=== PATIENT | female | born 1980 | race Caucasian/White ===

== ENCOUNTER 2017-01-18 17:58 | Inpatient (IN) | payer OTHER ==
[2017-01-18] VITALS (15 sets, daily range): BP systolic 136–206; BP diastolic 71–109; PULSE 64–76; RESP 15–18; O2SAT 98–100
[~2017-01-18] VITALS: Ht 170.2 cm; Wt 104.1 kg
[2017-01-18] MEDS: Labetalol 5 mg/mL 20 mL Inj IVPUSH ONE ×2 (18:20→19:45)
[2017-01-18] MEDS ORDERED: 0.9% Sodium Chloride 1,000 ML IV ONE (18:20)
[2017-01-18] MEDS ORDERED: Magnesium Sulf 4 Gm/100 mL H2O 4 GM in IV Premix 1 EACH IV ONE ×2 (18:20→20:40)
--- NOTE | 2017-01-18 18:20 | ED.REPORT ---
HPI-General Illness Date of Service Jan 18, 2017 ED Provider: Harvey Hester MD Pt is a 36 year old female with a hx of hypertension and gestational diabetes who is 2 days post- presenting to the ED complaining of high blood pressure (196/124) and bilateral LE swelling. The patient denies nausea, vomiting, SOB, abdominal pain or increasing vaginal bleeding. She had pre- eclampsia and was on a mag-drip during labor. She was induced on the 2nd and had the baby on the 4th at 38 weeks. Pt was discharged from [facility] this morning and had reportedly been off the magnesium drip for 24 hours at time of discharge. Pt is taking 100 mg labetalol daily. Nursing Notes Stated Complaint: HIGH BLOOD PRESSURE/HAD BABY 2 DAYS AGO Chief Complaint: General Complaint Nursing Notes Reviewed: Yes Allergies: Coded Allergies: No Known Allergies (Unverified , 01/18/17) Scheduled Labetalol (Labetalol) 100 Mg Tablet 100 MG PO DAILY General Time Seen by MD: 18:18 Chief Complaint Other (High blood pressure) Hx Obtained From: Patient Arrived By: Walk-in Sudden in Onset?: Yes Onset Occurred: Just prior to arrival Symptom Duration: Since onset Severity: Current: No pain currently Severity: Maximum: No pain Recent Healthcare: Recent doctor visit, Recent hospitalization Similar Sx Previous: Yes Past Medical History Past Medical History 2 days ago after vaginal delivery Had pre-eclampsia and gestational diabetes Past Surgical History denies Smoking History Unknown if Ever Smoker Ambulatory Status Independent Review of Systems High blood pressure Full Review of Systems Constitutional: Reports: Fatigue, Fever Respiratory: Denies: Shortness of breath, Wheezing GI: Denies: Nausea, Vomiting Female: Reports: Urinary frequency Musculoskeletal: Reports: Extremity swelling Complete sys rev & neg: except as marked. Physical Exam Vital Signs Vital Signs Date Time Temp Pulse Resp B/P Pulse Ox O2 Delivery O2 Flow Rate FiO2 01/18/17 18:09 37.1 74 18 206/109 100 Room Air Initial VS: Reviewed General/Constitutional: Well-developed, Well-nourished Head / Eyes: Atraumatic, Normocephalic, PERRL ENT: Mucous membranes moist, Conjunctiva normal, No scleral icterus Respiratory: Breath sounds normal, Clear to auscultation, No respiratory distress Cardiovascular: Regular rate & rhythm, Heart sounds normal, Intact distal pulses Psychiatric: Mood/affect normal, Behavior normal, Normal thought content Abdomen: Atraumatic, Soft, Non-tender Abd consistent with post Lower Extremity / Pelvis / MS: Atraumatic, No deformity, Neurologic intact, Vascular intact Bilateral 2+ LE pitting edema up to the knees. Good distal pulses. Skin: Atraumatic, Color NL, No rash, Warm, Dry, Intact Neurologic: Oriented X3, Speech NL, No motor deficits, No sensory deficits, CN II - XII intact, Reflexes equal bilat, Cerebellar NL, Memory NL Not hyporeflexive. No seizure activity. Interpretation & Diagnostics Lab Results Interpretation Result Diagram: 01/18/17 1835 01/18/17 1835 Test 01/18/17 18:35 White Blood Count 10.7th/mm3 (3.8-10.1) Red Blood Count 3.98mil/mm3 (3.90-5.20) Hemoglobin 11.2g/dL (12.0-15.6) Hematocrit 33.4% (35.0-46.0) Mean Corpuscular Volume 83.9fL (81-100) Mean Corpuscular Hemoglobin 28.1pg (27.0-35.0) Mean Corpuscular Hemoglobin Concent 33.5% (32.0-37.0) Red Cell Distribution Width 14.8% (12.3-15.4) Platelet Count 260bil/L (150-400) Neutrophils (%) (Auto) 61.8% (40-74) Lymphocytes (%) (Auto) 26.1% (14-46) Monocytes (%) (Auto) 8.4% (4-12) Eosinophils (%) (Auto) 3.2% (0-5) Basophils (%) (Auto) 0.2% (0-3) Prothrombin Time 8.8sec (8.1-12.5) Prothromb Time International Ratio 0.83ratio Sodium Level 137mEq/L (134-144) Potassium Level 4.1mEq/L (3.5-5.2) Chloride Level 101mEq/L (97-108) Carbon Dioxide Level 20mmol/L (18-29) Blood Urea Nitrogen 10mg/dL (6-20) Creatinine 0.56mg/dL (0.57-1.00) Estimat Glomerular Filtration Rate 176mL/min (>59) Glucose Level 123mg/dL (60-99) Lactic Acid Level 2.1mmol/L (0.4-2.0) Uric Acid 4.2mg/dL (2.6-7.2) Calcium Level 9.1mg/dL (8.5-10.1) Magnesium Level 1.5mg/dL (1.6-2.6) Total Bilirubin 0.2mg/dL (0.0-1.2) Aspartate Amino Transf (AST/SGOT) 66U/L (0-50) Alanine Aminotransferase (ALT/SGPT) 38U/L (0-32) Alkaline Phosphatase 107U/L (25-150) Total Protein 6.0g/dL (6.4-8.4) Albumin 3.1g/dL (3.4-5.0) ECG Interpretation ECG Interpretation: Normal axis and intervals. No ST segment changes. No acute T wave abnormalities. No other EKG for comparison. Time: 18:42 Interpreted by: ED physician Normal ECG Interpretation: Normal rate (74), Normal sinus rhythm Re-Eval/Medical Decision Med Decision/Clinical Course Pt is a 36 year old female with a hx of hypertension and gestational diabetes who is 2 days post- presenting to the ED complaining of high blood pressure (196/124) and bilateral LE swelling. The patient denies nausea, vomiting, SOB, abdominal pain or increasing vaginal bleeding. She had pre- eclampsia and was on a mag-drip during labor. She was induced on the 2nd and had the baby on the 4th at 38 weeks. Pt was discharged from [facility] this morning and had reportedly been off the magnesium drip for 24 hours at time of discharge. Pt is taking 100 mg labetalol daily. Upon arrival to the emergency Department the patient is quite hypertensive in the 200s over the 100s though improving to the 160s systolic at rest. Examination reveals significant pitting edema of the bilateral lower extremities and overall presentation is consistent with preeclampsia. Laboratory studies notable as below: CBC shows leukocytosis at 10.7 hematocrit of 33.4. CMP notable for magnesium of 1.5, mildly elevated transaminases Lactic acid of 2.1 No significant electrolyte abnormalities. Urine negative for protein, no signs of UTI. Coags normal. Overall presentation consistent with preeclampsia. Patient was initially treated with 20 mg of IV labetalol with good effect. I was in the process of initiating magnesium when [facility] arrived at the bedside. They have requested that we hold off on magnesium for the moment as the patient is responding well to IV labetalol. At this time patient's transaminases are mildly elevated without evidence of fulminant HELLP syndrome. The patient demonstrated no seizure-like activity. She is otherwise stable. Patient has been accepted by the [facility] service for further management and was transferred in stable condition. Time of Eval: 18:43 Patient Status: Condition improved Re-Evaluation/Progress Note: Discussed plan for admission. Pt understands and agrees with plan. Consultation #1: Referral / Consult Name: Lindy Javier MD Call Returned at: 18:33 Note: OBGYN. Accepts the admission. Consultation #2: Call Returned at: 18:45 Note: Spoke with Sofie, the pt's nurse at [facility]. Confirmed that the pt was treated with IV mag during labor. It stopped 24 hours prior to discharge, and pt was discharged on 100 mg of Labetalol. Counseled Regarding: Diagnosis, Lab results, Need for admission Discharge & Departure Primary Impression: Pre-eclampsia Trimester: unspecified trimester Qualified Code: O14.90 - Unspecified pre- eclampsia, unspecified trimester Additional Impressions: Hypertension Hypertension type: unspecified secondary hypertension Qualified Code: I15.9 - Secondary hypertension, unspecified Lower extremity edema Laterality: bilateral Qualified Code: R60.0 - Localized edema Elevated transaminase level Disposition: ADMITTED TO HOSPITAL Discharge Condition All VS Reviewed: Yes Condition: Improved Crit Care Except Billable Proc Time Spent: 75-104 minutes Services Performed: Patient management by me, Time spent at bedside, Reviewing test results, Discussing patient care, Documentation in record, Time with fam/ surrogate Critical Care Notes: Discussion with outside facility, discussion with [facility], management of hypertension/preeclampsia Scrchristina Attestation Portions of this note were transcribed by Litzy Sloan. I, Dr. Hester personally performed the history, physical exam and medical decision-making; I reviewed and confirmed the accuracy of the information in the transcribed note. Signed by: Adolfo Karimi, 01/18/2017. Harvey Hester MD Jan 18, 2017 18:20 LITZY SLOAN Jan 18, 2017 18:32
[2017-01-18 18:50] LABS: BASOPHILS % (AUTO) 0.2 % (0-3); EOSINOPHILS % (AUTO) 3.2 % (0-5); MONOCYTES % (AUTO) 8.4 % (4-12); Mean Corpuscular Hemoglobin 28.1 pg (27.0-35.0); Mean Corpuscular Volume 83.9 fL (81-100); NEUTROPHILS % (AUTO) 61.8 % (40-74); Platelet Count 260 bil/L (150-400)
[2017-01-18 19:03] LABS: INR 0.83 ratio
[2017-01-18 19:10] LABS: Magnesium 1.5 mg/dL (1.6-2.6)
[2017-01-18] MEDS ORDERED: LABE100T4 PO (19:42)
[2017-01-18 19:51] LABS: APPEARANCE,URINE HAZY (CLEAR,HAZY); COLOR,URINE YELLOW (YELLOW); OCCULT BLOOD,URINE LARGE (NEGATIVE); PH,URINE 6.5 (5.0-8.0); UROBILINOGEN,URINE NORMAL (NORMAL)
[2017-01-18] MEDS ORDERED: hydrALAZINE 20 mg/mL Inj IVPUSH PRN (20:40)
[2017-01-18] MEDS ORDERED: Calcium GLUCOnate 10% (Gm) 1 Gm/10 mL Inj IV PRN (20:40)
[2017-01-18] MEDS ORDERED: Labetalol 5 mg/mL 20 mL Inj IV PRN (20:40)
--- NOTE | 2017-01-18 21:20 | NUR ---
Admission BG fingerstick 86.
[2017-01-18] MEDS: Lactated Ringer's 1,000 ML IV SCH (21:45)
[2017-01-18] MEDS: Magnesium Sulf 20 Gm/500mL H2O 20 GM in IV Premix 1 EACH IV SCH (22:28)
--- NOTE | 2017-01-18 23:35 | HP ---
[address] [address] HISTORY AND PHYSICAL PATIENT: PREM NESS : 1980 MR#: [id number] ADMIT: 01/18/2017 JOB ID: [id number] HISTORY OF PRESENT ILLNESS: This is a 36-year-old female 1, para 1, status post vaginal delivery. This is day two after her vaginal delivery. History was based on patient and her labor and delivery nurse where she was delivered, which at this time no medical records could be faxed, but I personally talked with the nurse at their [facility]. She was admitted to [facility] in the hospital at 38 weeks for induction of labor, likely for chronic hypertension with superimposed preeclampsia. The patient has chronic hypertension for several years. She was on lisinopril and hydrochlorothiazide. It looks like the dosage was 20/12.5 mg. After she was she was on labetalol 200 b.i.d. According to patient her blood pressure has been all well controlled until weeks when she was admitted for induction. Even at that time patient said her blood pressure was not super high and she claimed she did not have headache, blurry vision, or epigastric pain, but she was admitted for induction and was placed on magnesium over her whole process of labor and magnesium was discontinued shortly during delivery and restarted. Based on the time according to the nurse and patient, it looks like her magnesium after was used between 12-20 hours, but I cannot get the exact time period. The delivery was not complicated and her preeclampsia labs were all in normal range according to labor and delivery nurse. Patient mentioned that her magnesium level was high and that is why the magnesium was stopped, but the labor and delivery nurse did not mention this. She was discharged this morning and at discharge her blood pressure was in 120s/60s. She was sent home with labetalol 200 b.i.d. When she went back home she did not feel headaches. She feels her legs swell and is concerning. She took her blood pressure, it was high at home. She came here at emergency department. She had no nausea, vomiting. No epigastric pain. No headache, no blurry vision, and no floaters before her eyes. She still has moderate to minimal lochia. She still has abdominal cramping on and off. She is currently doing breast-feeding. ALLERGIES: She declined a history of drug allergies. PAST MEDICAL HISTORY: Chronic hypertension and gestational diabetes. Declined other medical issues. Past surgical issues: She had nose surgery and wisdom teeth removal. GYNECOLOGIC HISTORY: Not complicated. OBSTETRICAL HISTORY: As mentioned above. SOCIAL HISTORY: Declined smoking, alcohol use or drugs, including marijuana. PHYSICAL EXAMINATION: Blood pressure at arriving to emergency department was 200/112, and rechecked 160s/100. Pulse in normal range, which was 74. Respiratory rate 18. O2 sat 98-100 on room air. Cardiac: RRR. No murmur. Pulmonary: Bilaterally clear. Abdomen: Soft. Extremities: Nontender. DTRs 2+. LABORATORIES: Her AST is 66, ALT 38. Compared to her yesterday's labs all in normal range. Otherwise, her creatinine 0.56, glucose 123, uric acid 4.2. H and H 11.2/33.4. Platelets 260. PT 8.8. INR 0.83. Urine protein negative. ASSESSMENT AND PLAN: A 36-year-old female 2, para 2, status post vaginal delivery, day two. She was diagnosed likely chronic hypertension with superimposed preeclampsia, status post magnesium not completed 24 hour course, with severely elevated blood pressure. No symptoms though. 1. Based on her possible diagnosis of severe preeclampsia and not completing 24 hour magnesium, and now started to have elevated AST, ALT, I will put her back on magnesium, consider about 12-24 hours at this time. 2. Will closely monitor blood pressure. At this time, I will increase her labetalol to 300 b.i.d. Discussed with patient about putting her back on her previous medication, lisinopril and hydrochlorothiazide. Patient is very concerned and crying because she really desires for breast-feeding. At this time, will just hold for her previous medication, just increase her labetalol. If it is not working we will have to consider change in medication. Will put patient on clear fluid at this time and will give her IV fluid 50 with magnesium per hour. 3. I will not place a Saini catheter now, but we will instruct patient to void regularly to monitor urine output. If urine output is not adequate, Saini catheter will be placed. Repeat labs ordered for tomorrow morning at five o'clock.
[2017-01-19] VITALS (14 sets, daily range): BP systolic 119–167; BP diastolic 59–92; PULSE 65–109; RESP 15–18; O2SAT 98–100
[2017-01-19] MEDS ORDERED: LANOlin HPA 7 Gm Ointment TOPICAL PRN (03:50)
[2017-01-19 07:13] LABS: BASOPHILS % (AUTO) 0.1 % (0-3); EOSINOPHILS % (AUTO) 5.3 % (0-5); MONOCYTES % (AUTO) 6.7 % (4-12); Mean Corpuscular Hemoglobin 27.6 pg (27.0-35.0); Mean Corpuscular Volume 84.1 fL (81-100); Platelet Count 278 bil/L (150-400)
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
--- NOTE | 2017-01-19 07:29 | PCM.PNOBPP ---
Subjective Date of Service Jan 19, 2017 Post : Spontaneous Vaginal Delivery Visit History This is a 36-year-old female 1, para 1, status post vaginal delivery. This is day three after her vaginal delivery. History was from patient no outpatient records available, her labor and delivery nurse where she was delivered discussed patient case over phone and gave pertinent history. Patient was admitted to [facility] in the hospital at 38 weeks for induction of labor 01/16/17, likely for chronic hypertension with superimposed preeclampsia. The patient has chronic hypertension for several years. She was on lisinopril and hydrochlorothiazide. It looks like the dosage was 20/12.5 mg. After she was she was on labetalol 200 b.i.d. According to patient her blood pressure has been all well controlled until weeks when she was admitted for induction. Even at that time patient said her blood pressure was not super high and she claimed she did not have headache, blurry vision, or epigastric pain, but she was admitted for induction and was placed on magnesium over her whole process of labor and magnesium was discontinued shortly during delivery and restarted. Based on the time according to the nurse and patient, it looks like her magnesium after was used between 12-20 hours, but I cannot get the exact time period. The delivery was not complicated and her preeclampsia labs were all in normal range according to labor and delivery nurse. Patient mentioned that her magnesium level was high and that is why the magnesium was stopped, but the labor and delivery nurse did not mention this. She was discharged 01/18/17 and at discharge her blood pressure was in 120s/60s. She was sent home with labetalol 200 b.i.d. When she went back home she did not feel headaches. At time of admission patient stated she feelt her legs swell and is concerning. She took her blood pressure, it was high at home. She came here at emergency department. She had no nausea, vomiting. No epigastric pain. No headache, no blurry vision, and no floaters before her eyes. She still has moderate to minimal lochia. She still has abdominal cramping on and off. She is currently doing breast-feeding. Subjective Today patient denies headaches,nausea, vomiting, extremity weakness, chest pain , shortness of breath. She states that she has mild blurry vision but stated she feels foggy with mag, Labs Her AST is 66, ALT 38. Compared to her yesterday's labs all in normal range. Otherwise, her creatinine 0.56, glucose 123, uric acid 4.2. H and H 11.2/33.4. Platelets 260. PT 8.8. INR 0.83. Urine protein negative. Labs Laboratory Tests 01/19/17 06:50: Exam Vital Signs Vital Signs Vital Signs Date Time Temp Pulse Resp B/P Pulse Ox O2 Delivery O2 Flow Rate FiO2 01/19/17 06:30 72 17 130/78 100 Room Air 01/19/17 05:44 36.4 71 15 132/59 98 Room Air 01/19/17 04:30 71 17 138/78 98 Room Air 01/19/17 03:35 36.1 70 18 137/73 98 Room Air 01/19/17 02:39 36.2 70 18 155/72 99 01/19/17 01:31 36.2 68 17 122/67 100 Room Air 01/19/17 00:29 68 146/85 01/19/17 00:19 77 124/79 01/18/17 23:58 70 136/71 01/18/17 23:30 36.2 70 18 160/85 Room Air Exam Abdomen: Fundus firm Lungs: Clear to Percussion, Normal Air Movement Heart: Regular Rate/Rhythm, Normal S1, Normal S2 General: Oriented X3, Cooperative, No Acute Distress OB Post Assessment/Plan Assessment A 36-year-old female 2, para 2, status post vaginal delivery, day three. She was diagnosed likely chronic hypertension with superimposed preeclampsia, status post magnesium not completed 24 hour course, with severely elevated blood pressure. No symptoms currently 1. Continue magnesium until 24 hours. Based on her possible diagnosis of severe preeclampsia, DC if develop clonus per protocil 2. Will closely monitor blood pressure. Consider, increase her labetalol to 300 b.i.d. 3. Diet clear fluid at this time 4. Monitor urine output. If urine output is not adequate, Saini catheter will be placed. 5. Repeat AM labs 6. Will add procardia XL 30mg daily. Attending Statement The patient was seen and examined together with Dr. Vitaliy Farnsworth 01/20/2017 and I have added additional information to the note above. VITALIY FARNSWORTH DO Jan 19, 2017 07:29 Farshad Guerrero MD Jan 20, 2017 10:23
[2017-01-19 07:33] LABS: Magnesium 4.6 mg/dL (1.6-2.6)
[2017-01-19] MEDS: Magnesium Sulf 20 Gm/500mL H2O 20 GM in IV Premix 1 EACH IV SCH (08:57)
--- NOTE | 2017-01-19 09:41 | NUR ---
BP elevated at 0730. Pt. states that she is exhausted, has not slept, and her "anxiety is very high." Pt. discussed move to [place] from [place] only a couple of days ago. Because of her BP, her has her baby. She is worried about issues, and she is "starving." Has not eaten since yesterday. Discussed need to get some sleep. T/C to Dr. Young. Ordered Xanax, one time dose, and orders for general diet received. Will administer Xanax when pt. wakes up.
[2017-01-19] MEDS ORDERED: ALPRAZolam 0.5 mg Tablet PO ONE ×2 (10:25→16:40)
--- NOTE | 2017-01-19 14:18 | NUR ---
Note 1245 To patient's room for visit. [place] being held by FOB. Assisted client with comfortable position and taught hand expression of colostrum. IBCLC able to express several drops after some massage. held by patient in cradle position and attempted to latch. [place] licked nipple but did not gape or latch. Due to appearance of jaundice and most recent feeding of formula at 0700, encouraged FOB to feed formula at that time. Assisted with pump positioning at breasts bilaterally and encouraged to pump q3 hrs at least. Also encouraged to not expect colostrum/breastmilk at initial pumpings. with transitional stools and FOB states has an appointment 11/19/2016 with [facility]. Encouraged to keep appointment. Discussed status with Dede Teran RN. Much support and encouragement given. Plan: 1. Pump q3 hours or more frequently 2. When is at [facility] keep STS as much as possible
[2017-01-19] MEDS: Lactated Ringer's 1,000 ML IV SCH (16:49)
--- NOTE | 2017-01-19 18:18 | NUR ---
Attempted to give pt. Xanax earlier today after initial order but by the time medication was in [employer], pt. was asleep. After a couple hours sleep, offered xanax to pt. She decided to wait since FOB was bringing baby up to her to breastfeed. (See note.) Pt. later decided she wanted Xanax but it was no longer in [facility]. TC to Dr. Young who ordered one time dose. Blood pressures have been labile throughout shift. BP at 1741 was 177/103. Pt. stated she did not believe the BP because she did not feel that it was elevated at all. Denies headache, scotama, epigastric pain,etc. BP taken manually and found to be 150/90. Cuff changed on automatic machine and retaken. BP 155/85. Other BP's this shift have been in the 130-150's/high 80's. Requested MgSO4 level at 1620 as DTR's were decreased from last check, and pt. stated she was feeling "fuzzier." MgSO4 level done and returned at critical level of 12.9 at 1730. MgSO4 immediately turned off. No s/s of respiratory depression, slurred speech, or somnolence. T/C to Dr. Ann, (currently o/c). Order given to discontinue MgSO4, and draw another MgSO4 level in am, but if pt. begins to show s/s of toxicity, okay to do one earlier. Pt. has had over 2500 ml of urine output this shift.
--- NOTE | 2017-01-19 18:48 | NUR ---
Shift total I&O Shift intake was 3262. Output was 3750.
[2017-01-19] MEDS ORDERED: diphenhydrAMINE 50 mg Capsule PO ONE (19:32)
[2017-01-20 06:25] LABS: Mean Corpuscular Hemoglobin 28.3 pg (27.0-35.0); Mean Corpuscular Volume 83.3 fL (81-100)
--- NOTE | 2017-01-20 06:57 | PCM.PNOBPP ---
Subjective Date of Service Jan 20, 2017 Visit History This is a 36-year-old female 1, para 1, status post vaginal delivery. This is day three after her vaginal delivery. History was from patient no outpatient records available, her labor and delivery nurse where she was delivered discussed patient case over phone and gave pertinent history. Patient was admitted to [facility] in the hospital at 38 weeks for induction of labor 01/16/17, likely for chronic hypertension with superimposed preeclampsia. The patient has chronic hypertension for several years. She was on lisinopril and hydrochlorothiazide. It looks like the dosage was 20/12.5 mg. After she was she was on labetalol 200 b.i.d. According to patient her blood pressure has been all well controlled until weeks when she was admitted for induction. Even at that time patient said her blood pressure was not super high and she claimed she did not have headache, blurry vision, or epigastric pain, but she was admitted for induction and was placed on magnesium over her whole process of labor and magnesium was discontinued shortly during delivery and restarted. Based on the time according to the nurse and patient, it looks like her magnesium after was used between 12-20 hours, but I cannot get the exact time period. The delivery was not complicated and her preeclampsia labs were all in normal range according to labor and delivery nurse. Patient mentioned that her magnesium level was high and that is why the magnesium was stopped, but the labor and delivery nurse did not mention this. She was discharged 01/18/17 and at discharge her blood pressure was in 120s/60s. She was sent home with labetalol 200 b.i.d. When she went back home she did not feel headaches. Subjective Today patient Pain Management: PO pain meds Labs Her AST is 66, ALT 38. Compared to her yesterday's labs all in normal range. Otherwise, her creatinine 0.56, glucose 123, uric acid 4.2. H and H 11.2/33.4. Platelets 260. PT 8.8. INR 0.83. Urine protein negative. Labs Laboratory Tests 01/19/17 06:50: Neutrophils (%) (Auto) 62.0, Lymphocytes (%) (Auto) 25.7, Monocytes (%) (Auto) 6.7, Eosinophils (%) (Auto) 5.3, Basophils (%) (Auto) 0.1 01/20/17 06:01: Exam Vital Signs Vital Signs Vital Sign - Last Date Time Temp Pulse Resp B/P Pulse Ox O2 Delivery O2 Flow Rate FiO2 01/19/17 16:58 68 16 141/89 01/19/17 07:30 36.4 Room Air 01/19/17 06:30 100 Intake and Output 01/19/17 01/19/17 01/20/17 Cumulative From/Thru 15:00 23:00 07:00 01/18/17 18:09 - 01/19/17 18:34 Intake Total 2160 ml 1102 ml 5695 ml Output Total 2000 ml 550 ml 5875 ml Balance 160 ml 552 ml -180 ml Intake Oral 2160 ml 2660 ml IV Total 1102 ml 3035 ml Output Urine Total 2000 ml 550 ml 5875 ml # Voids 8 OB Post Assessment/Plan Assessment A 36-year-old female 2, para 2, status post vaginal delivery, day four. She was diagnosed likely chronic hypertension with superimposed preeclampsia, status post magnesium now completed 24 hour course, Continues to have elevated blood pressure. No symptoms though. Magnesium DC due to level 12.9 with clonus 1. Severe preeclampsia Magnesium DC due to level 12.9 Continue Labetalol 200 mg BID Start nifedipine 10 mg PO TID Vitals Q4 Adequate urine output 3750, hold Saini placement Cr 0.51 Continue IVF LR at 125 mls/hr Repeat Labs in AM 2. Elevated transaminases AST 78 ALT 50 Likely due to poor perfusion of liver due to hypertension Continue IVF LR 125 mls/hr Attending Statement Plan is to increase labetolol to 300mg BID and add Procardia XL 30mg daily. The patient was seen and examined together with Dr.Aaron Farnsworth on 01/20/2017 and I have added additional information to the note above. TOM FARNSWORTH DO Jan 20, 2017 06:57 Farshad Guerrero MD Jan 20, 2017 10:30
[2017-01-20] MEDS ORDERED: NIFEdipine 10 mg Capsule PO SCH (08:30)
[2017-01-20 08:50] LABS: Magnesium 2.8 mg/dL (1.6-2.6)
[2017-01-20] MEDS: NIFEdipine 30 mg ER24 Tablet PO SCH (10:48)
[2017-01-20] MEDS: ALPRAZolam 0.5 mg Tablet PO PRN ×2 (15:15→22:48)
[2017-01-20] MEDS ORDERED: hydrOXYzine Pamoate 25 mg Capsule PO PRN (18:25)
[2017-01-21 07:30] LABS: Mean Corpuscular Hemoglobin 27.8 pg (27.0-35.0); Mean Corpuscular Volume 84.6 fL (81-100)
[2017-01-21] MEDS: ALPRAZolam 0.5 mg Tablet PO PRN ×2 (08:27→16:59)
[2017-01-21] MEDS: NIFEdipine 30 mg ER24 Tablet PO SCH (10:49)
--- NOTE | 2017-01-21 12:38 | PROG NOTE ---
[address] [address] PROGRESS NOTE PATIENT: PREM NESS : 1980 MR#: [id number] ADMIT: 01/18/2017 JOB ID: [id number] DATE: 01/21/2017 SUBJECTIVE: The patient 36 years old. day number five status post spontaneous vaginal delivery in [facility]. The patient was admitted by the [facility] for severe preeclampsia. Admitted on January 18, 2017, day two. She is day number five today on January 21, 2017. Admitted with chronic hypertension with superimposed preeclampsia. Started on magnesium sulfate for seizure prophylaxis. Started on labetalol 300 b.i.d. Blood pressure was still not controlled so the patient was started yesterday on nifedipine XL 30 mg daily. OBJECTIVE: Blood pressures for the last 24 hours are as follows: Systolics 195-133, diastolics 96-71. Last blood pressure was 138/85. Pulse is 62, respirations are 18, temperature 36.4 degrees centigrade. Pulse ox of 99% on room air. Heart: Regular rate and rhythm. Positive S1, S2. Lungs: Clear to auscultation bilaterally upper and lower zones. Abdomen: Firm. Uterine fundus palpated above the umbilicus. Nontender. Positive bowel sounds. Nondistended abdomen. No right upper quadrant tenderness. Perineum: No active bleeding. Lower extremities: No calf tenderness appreciated bilaterally. Deep tendon reflexes are 1+ upper, 1+ lower. No clonus. LABORATORY: H and H this morning is 12.1 and 36.9. Platelets are 113 312, white blood count is 7.3. Calcium is 9, sodium 140, potassium 5.2, chloride 104, carbon dioxide 21, BUN is 10, creatinine is 0.66, glucose 87. Urine cultures negative. The patient has a history of gestational hypertension that was diet controlled. Her fasting yesterday was 92 and her 1-hour postprandial dinner last night was 125. The patient is during her own blood glucose finger sticks. ASSESSMENT AND PLAN: The patient is a 36-year-old day number five status post spontaneous vaginal delivery in [facility] admitted with chronic hypertension, superimposed preeclampsia, and clinically improving. Blood pressures are still not within acceptable ranges. Will continue monitoring blood pressure. Will consider changing antihypertensive medication dosage tonight as blood pressures are still not within acceptable ranges. The patient received one dose of Lasix 20 mg at [address] Guerrero. The above was discussed in detail with the patient, who agreed to the plan. Will consider discharging home when blood pressures are within acceptable ranges for 24 hours. The patient agreed.
[2017-01-22] MEDS: ALPRAZolam 0.5 mg Tablet PO PRN (08:43)
[2017-01-22] MEDS: NIFEdipine 30 mg ER24 Tablet PO SCH (10:50)
--- NOTE | 2017-01-22 19:17 | PCM.DIMED ---
Discharge Instructions Date of Service Jan 22, 2017 Dates of Hospitalization Jan 18, 2017 at 18:53 Diet Discharge Diet: No restrictions Activity Discharge Activity: No restrictions Call your provider Call your provider for: Fever or Chills, Shortness of breath, Bleeding, Chest pain, Vomitting, Excessive diarrhea, Weakness (unilateral) Patient Instructions Follow-up with PCP in: 1 week Chinedu Young MD Jan 22, 2017 19:17
[2017-01-22] MEDS ORDERED: LABE100T4 PO (19:21)
[2017-01-22] MEDS ORDERED: NIFE30TA92 PO (19:21)
--- NOTE | 2017-01-22 20:02 | DIS ---
[address] [address] DISCHARGE SUMMARY PATIENT: PREM NESS : 1980 MR#: [id number] ADMIT: 01/18/2017 JOB ID: [id number] DIS: 01/22/2017 ADMITTING DIAGNOSIS: A 36-year-old, para 1, with chronic hypertension with superimposed severe preeclampsia. DISCHARGE DIAGNOSIS: A 36-year-old, para 1, with chronic hypertension with superimposed severe preeclampsia. The patient is a 36-year-old who has been admitted to Labor and Delivery, on day five, January 18, 2017, with status post spontaneous vaginal delivery in [facility]. Her blood pressure was elevated, systolics in the range of 190s to 130s, diastolics in the range of 90s to 70s. The patient was started on magnesium sulfate, and labetalol was started for control of blood pressure. She had spontaneous vaginal delivery on January 16, 2017. The patient's condition was gradually improving throughout her stay on Labor and Delivery floor. She was initially taking labetalol 300 mg p.o. b.i.d. which was increased to labetalol 300 mg p.o. t.i.d., the blood pressure was still poorly controlled on hospital day four, and she was started on nifedipine extended release 30 mg p.o. b.i.d. On January 22, 2017, her hospital day four, day six, the blood pressures were in the range of 120s over 80s to 110s over 80s and were stable for 24 hours. The last blood pressure in the afternoon, 6 p.m. on January 22, 2017, was 114/82. The patient was complaining about mild headaches, declines visual changes, no head or face swelling, no right upper quadrant epigastric tenderness. Vital signs: Blood pressure 114/82, respiratory rate 18, pulse 68, temperature 36.7, pulse ox 99% on room air. General. Awake, alert, oriented x3, in no apparent distress. HEENT: PERRLA. Lungs: Clear bilaterally, no adventitious sounds. Cardiovascular system: Regular rate and rhythm. Abdomen is nondistended, nontender. Uterine fundus palpable at the level of the umbilicus. Pelvic exam deferred. Extremities: No pitting edema. No calf tenderness, no Homans sign. Deep tendon reflexes are 1+ bilaterally. LABORATORY FINDINGS: On hospital day five, WBC count was 7.3, hemoglobin 12.1, hematocrit 36.9, platelet count 312. Liver function testing: AST was 59. ALT 66, improving throughout her hospital stay. ASSESSMENT AND PLAN: A 36-year-old, 1, para 1, status post spontaneous vaginal delivery, day six, hospital day four, being admitted and treated for chronic hypertension with superimposed preeclampsia. The patient was diagnosed with chronic hypertension at the age of 28, was taking lisinopril and hydrochlorothiazide. Underwent spontaneous vaginal delivery at 38 weeks. Was admitted with severe preeclampsia to [facility] on January 18, 2017. Throughout her hospital stay, patient received magnesium sulfate for seizure prophylaxis and blood pressure medications were readjusted to bring her blood pressure under control. The patient is being sent home in stable condition with all discharge criteria met with controlled hypertension for 24 hours. DISCHARGE MEDICATIONS: Will include: 1. Labetalol 300 mg p.o. t.i.d. 2. Procardia XL 30 mg p.o. b.i.d. Preeclampsia precautions were reviewed. The signs and symptoms were discussed including headache, visual changes, right upper quadrant epigastric pain, hand swelling. The followup visit in OB Clinic is scheduled in three days.
[2017-01-22 20:10] VITALS: BP 118/78; PULSE 74; RESP 16
== END 2017-01-22 20:35 | disposition home or self-care (01) | DRG 776 ==
LOC: SED 17:58 → FBC 18:53
PROVIDERS: ADMIT Obstetrics & Gynecology; ATTEND Obstetrics & Gynecology
DX: O14.15 Severe pre-eclampsia, complicating the puerperium (principal); R74.0 Nonspecific elevation of levels of transaminase and lactic acid dehydrogenase [LDH]